=== PATIENT | female | born 1985 | race Caucasian/White ===

== ENCOUNTER 2017-07-03 11:06 | Day surgery (SDC) | payer SELFPAY ==
[2017-07-02 12:49] VITALS: BMI 27.4
[2017-07-03] MEDS ORDERED: LIDOCAINE HCL 1%, 10 MG/ML (20ML VIAL) ONE ×2 (12:57→13:23)
[2017-07-03] MEDS ORDERED: EPINEPHrine/PF 1 MG/1 ML (1:1,000) AMPULE ONE ×2 (12:58→13:23)
[2017-07-03] MEDS ORDERED: PROPOFOL 20 ML ONE (13:05)
[2017-07-03] MEDS ORDERED: MIDAZOLAM HCL 2 MG/2 ML SINGLE DOSE VIAL ONE (13:05)
[2017-07-03] MEDS ORDERED: ROCURONIUM BROMIDE 50 MG/5 ML VIAL ONE (13:05)
[2017-07-03] MEDS ORDERED: fentaNYL CITRATE 250 MCG/5 ML VIAL ONE (13:05)
[2017-07-03] MEDS ORDERED: LIDOCAINE HCL/PF 2% SDV 5ML VIAL ONE (13:05)
[2017-07-03] MEDS ORDERED: DEXAMETHASONE SOD PHOSPHATE 4 MG/1 ML VIAL ONE (13:05)
[2017-07-03] MEDS ORDERED: CLINDAMYCIN 900 MG PREMIX BAG IVPB ONE (13:55)
[2017-07-03] MEDS ORDERED: CLINDAMYCIN PHOSPHATE 600 MG/4 ML VIAL ONE (14:05)
[2017-07-03] MEDS ORDERED: LIDOCAINE 1%/EPI 1:100000 (50 ML MULTI DOSE VIAL) INF ONE ×2 (14:20)
[2017-07-03] MEDS ORDERED: ePHEDrine SULFATE 50 MG/1 ML AMPULE ONE (14:36)
[2017-07-03] MEDS ORDERED: NEOSTIGMINE METHYLSULFATE 0.5 MG/ML - 10 ML MDV ONE (16:10)
[2017-07-03] MEDS ORDERED: GLYCOPYRROLATE 0.2 MG/1 ML VIAL ONE (16:10)
--- NOTE | 2017-07-03 16:40 | OP ---
Operative Note - Note: Operative Date: 07/03/17 Pre-Operative Diagnosis: lipodystrophy Operation: Suction assisted lipectomy of abdomen,flanks,back,arms and buffalo hump neck Post-Operative Diagnosis: Same as Pre-op Surgeon: Michael Newby Anesthesia: General Estimated Blood Loss (mls): 100
[2017-07-03] MEDS ORDERED: ONDANSETRON 4 MG/2 ML VIAL ONE (16:42)
[2017-07-03] MEDS ORDERED: ONDANSETRON 4 MG/2 ML VIAL IVPUSH PRN (16:50)
[2017-07-03] MEDS ORDERED: oxyCODONE HCL 5 MG TABLET PO PRN (16:50)
[2017-07-03] MEDS ORDERED: LACTATED RINGERS SOLUTION 1,000 ML IV SCH (17:00)
[2017-07-03 19:10] VITALS: BP 131/69; PULSE 109; TEMP 98.5
--- NOTE | 2017-07-04 14:43 | OP ---
DATE OF OPERATION: 07/03/2017 SURGEON: Chao Newby MD PREOPERATIVE DIAGNOSES: 1. Woodruff-hump deformity of posterior neck. 2. Lipodystrophy of back, arms, flanks, hips, thighs, and abdomen. POSTOPERATIVE DIAGNOSES: 1. Woodruff-hump deformity of posterior neck. 2. Lipodystrophy of back, arms, flanks, hips, thighs, and abdomen. OPERATIVE PROCEDURE: Suction-assisted lipectomy of abdomen, flanks, hips, thighs, back, neck, shoulders, and arms. 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 The risks and benefits of surgical versus nonsurgical alternatives as well as the material complications of no surgery were discussed with the patient on multiple occasions including today in the holding area. She was seen previously with her father in attendance, and a full discussion of the risks and benefits of the procedure and expectations were discussed with both of them. They both agreed to the planned procedures as well as the patient understanding the implications. OPERATIVE PROCEDURE IN DETAIL: Patient was taken to the operating room, and after being placed supine on the stretcher, she was intubated and then rolled into the prone position and protected both in the face, neck, chest. Bolsters were placed in the appropriate positions beneath her body, and all areas of her body were protected with foam and the usual compression for prone position. At this point, the markings which we had made in the standing position preoperatively with the patient's knowledge were outlined. Areas on the upper back were injected with 1% local lidocaine anesthesia, and a dilute epinephrine and lidocaine solution was injected into the neck, upper back, lower flank area, and the arms. Incisions were made using the 15 scalpel and using the Micro[employer]ire suction-assisted lipectomy device. The tissue in the neck especially was removed with this device, and then, suction-assisted lipectomy was carried out over the areas marked on the upper back, scapular, flank regions, lateral bra area, and down into the arms on the medial and lateral sides from the posterior approach. Approximately 900 mL was removed from these areas symmetrically. Dressings were used after 3-0 nylon sutures were placed into the 3 small incisions, and dressings were placed over these areas. The patient was then rotated back onto the stretcher and then transferred into the supine position and again protected in all areas in the usual fashions. Suction-assisted lipectomy was then carried out on the abdomen, flanks, and lateral chest wall through the anterior approach with 2 small incisions. The same dilute epinephrine solution with 1000 mL of 50% lidocaine and 1 mL of epinephrine was placed into the solution. She tolerated all areas nicely. Good shape and contour was seen at the end of the procedure. She was dressed with compression dressings, and then, a garment was placed before she was awakened. The patient was awakened, extubated, and transferred to the recovery room in satisfactory condition and tolerated the procedure well. CHAO NEWBY M.D. [id number]
== END 2017-07-03 20:00 | disposition home or self-care (01) ==
LOC: JASU-SURG 11:06
PROVIDERS: ATTEND Plastic Surgery
PROC: 0J073ZZ Alteration of Back Subcutaneous Tissue and Fascia, Percutaneous Approach (ICD-10-PCS; 2017-07-03)
PROC: 0J053ZZ Alteration of Left Neck Subcutaneous Tissue and Fascia, Percutaneous Approach (ICD-10-PCS; 2017-07-03)
PROC: 0J043ZZ Alteration of Right Neck Subcutaneous Tissue and Fascia, Percutaneous Approach (ICD-10-PCS; 2017-07-03)
PROC: 0J0M3ZZ Alteration of Left Upper Leg Subcutaneous Tissue and Fascia, Percutaneous Approach (ICD-10-PCS; 2017-07-03)
PROC: 0J0L3ZZ Alteration of Right Upper Leg Subcutaneous Tissue and Fascia, Percutaneous Approach (ICD-10-PCS; 2017-07-03)
PROC: 0J083ZZ Alteration of Abdomen Subcutaneous Tissue and Fascia, Percutaneous Approach (ICD-10-PCS; principal; 2017-07-03 13:00)
DX: E88.1 Lipodystrophy, not elsewhere classified (principal); M95.3 Acquired deformity of neck
CPT/HCPCS: 84703